=== PATIENT | male | born 1965 | race Caucasian/White ===

== ENCOUNTER 2020-07-03 12:57 | Outpatient (REF) | payer MEDICARE, MEDICAID, SELFPAY ==
--- NOTE | 2020-07-03 | US_ITS ---
EXAMINATION: US EXTRACRANIAL CAROTID DUPLEX, BILATERAL CLINICAL INFORMATION: This a 55-year-old male with occlusion or stenosis of bilateral carotid arteries. Diabetes, tobacco use, hypertension. Carotid artery disease. COMPARISON: None TECHNIQUE: Real-time ultrasound and Doppler techniques (integrating B-mode 2-D vascular images, Doppler spectral analysis and color-flow Doppler imaging) were utilized to interrogate the extracranial carotid arteries, the vertebral arteries and proximal subclavian arteries bilaterally. The degree of stenosis is determined by criteria similar to NASCET. FINDINGS: Right Side: 1. There is moderate atherosclerotic plaque seen in the bifurcation/proximal ICA region. 2. The common carotid artery PSV proximally is 89 cm/s and distally 78 cm/s. 3. The proximal internal carotid artery velocities are 65 cm/s systolic and 18 cm/s diastolic. 4. The proximal external carotid artery PSV is 138 cm/s. 5. The vertebral artery shows antegrade flow. 6. The subclavian artery waveforms are normal. Left Side: 1. There is minimal atherosclerotic plaque seen in the bifurcation/proximal ICA region. 2. The common carotid artery PSV proximally is 109 cm/s and distally 100 cm/s. 3. The proximal internal carotid artery velocities are 80 cm/s systolic and 17 cm/s diastolic. 4. The proximal external carotid artery PSV is 127 cm/s. 5. The vertebral artery shows antegrade flow. 6. The subclavian artery waveforms are normal. US/US carotid duplex BI IMPRESSION: 1. RIGHT: Minimal, non-hemodynamically significant stenosis of the proximal right internal carotid artery corresponding to a 0-49% stenosis by velocity criteria. 2. LEFT: Minimal, non-hemodynamically significant stenosis of the proximal left internal carotid artery corresponding to a 0-49% stenosis by velocity criteria. 3. Incidental note is made of a hypoechoic mass in the left neck measuring 1.7 x 0.7 x 1.5 cm. It does not have an echogenic fatty hilum that would be typical of a lymph node. No calcification is seen. The etiology is unclear. I would recommend a full diagnostic neck ultrasound for further evaluation.
--- NOTE | 2020-08-06 15:24 | MHC.SLORD ---
Please see original MBSS report in historical documentation. Patient was recommended dysphagia therapy. Patient spoke with front office staff and declines treatment at this time. Date of : 1965 Age: 55 Date of Registration: 07/03/20 Speech Language Pathology Order Status:
== END 2020-07-03 12:58 | disposition home or self-care (01) ==
LOC: HO.US 12:57
PROVIDERS: PCP Family Medicine; Visit Provider Family Medicine
DX: I65.23 Occlusion and stenosis of bilateral carotid arteries (principal)
CPT/HCPCS: 93880

== ENCOUNTER 2020-09-19 14:27 | Outpatient (RCR) | payer MEDICARE, MEDICAID, SELFPAY | END 2020-10-15 13:26 | disposition home or self-care (01) | LOC: HO.WCC 14:27 | PROVIDERS: Visit Provider Surgery | DX: E11.621 Type 2 diabetes mellitus with foot ulcer (principal); L97.412 Non-pressure chronic ulcer of right heel and midfoot with fat layer exposed; E11.51 Type 2 diabetes mellitus with diabetic peripheral angiopathy without gangrene; E11.65 Type 2 diabetes mellitus with hyperglycemia; F17.200 Nicotine dependence, unspecified, uncomplicated; F12.90 Cannabis use, unspecified, uncomplicated; Z79.4 Long term (current) use of insulin; Z71.6 Tobacco abuse counseling | CPT/HCPCS: 11042; 99203; 99212 ==

== ENCOUNTER → 2021-05-20 13:20 | Outpatient (BNVA) | payer MEDICARE, MEDICAID, SELFPAY | PROVIDERS: PCP Family Medicine; Visit Provider Surgery Vascular Surgery | DX: I73.9 Peripheral vascular disease, unspecified (principal) | CPT/HCPCS: 99202 ==

== ENCOUNTER 2021-06-09 13:49 | Outpatient (REF) | payer MEDICARE, MEDICAID, SELFPAY ==
--- NOTE | ~2021-06-09 | US_ITS ---
EXAMINATION: NONINVASIVE ASSESSMENT OF THE ARTERIES OF BOTH LOWER EXTREMITIES INCLUDING PVR EXAM AND BILATERAL LOWER EXTREMITY DUPLEX CLINICAL INFORMATION: Claudication COMPARISON: None TECHNIQUE: Ankle pulse volume recordings, ankle pressure measurements and ankle brachial indices were obtained of the lower extremity arterial system bilaterally in addition to duplex Doppler techniques with wave form analysis and measurement of velocities in the common femoral, profunda femoral, superficial femoral, popliteal, tibial and peroneal arteries. The study was performed only at rest. FINDINGS: RIGHT LEG 1. Right Ankle-Brachial Index: 0.62 (higher of the DP/PT) >0.97-1.25 = normal - no significant arterial disease 0.75-0.96 = mild peripheral arterial disease 0.5-0.74 = moderate peripheral arterial disease <0.50 = severe peripheral arterial disease <0.30 = critical arterial disease 2. Segmental Pressures (mmHg): Brachial: 135 Ankle: PT 91, DP 78 3. PVR Waveforms: Ankle: Abnormal 4. Direct Duplex: Common femoral artery: 55.5 cm/s, Multiphasic (poorly seen diastolic flow reversal) Profunda femoris artery: 76.2 cm/s, monophasic Superficial femoral artery (proximal): 26.3 cm/s, monophasic Superficial femoral artery (mid): 15.3 cm/s, monophasic Superficial femoral artery (distal): 32.8 cm/s, monophasic Popliteal artery: 64.8 cm/s, monophasic Mid posterior tibial artery: 20.8 cm/s, monophasic Peroneal artery: 13.7 cm/s, monophasic At the midportion of the right SFA there is a collateral vessel with retrograde flow with peak systolic velocity 160 cm/s. An additional collaterals seen at the level of the distal SFA with peak systolic velocity 19.8 cm/s. A collateral vessels seen adjacent to the right posterior tibial artery with peak systolic velocity 20.8 cm/s. LEFT LE. Left Ankle-Brachial Index: 0.64 (higher of the DP/PT) >0.97-1.25 = normal - no significant arterial disease 0.75-0.96 = mild peripheral arterial disease 0.5-0.74 = moderate peripheral arterial disease <0.50 = severe peripheral arterial disease <0.30 = critical arterial disease 2. Segmental Pressures: Brachial: 147 Ankle: PT 94, DP 93 3. PVR Waveforms: Ankle: Abnormal 4. Direct Duplex: Common femoral artery: 134 cm/s, monophasic Profunda femoris artery: 100 cm/s, multiphasic Superficial femoral artery (proximal): 57.8 cm/s, monophasic Superficial femoral artery (mid): 28.1 cm/s, monophasic Superficial femoral artery (distal): 259 cm/s, monophasic Popliteal artery: 37.7 cm/s, monophasic Mid posterior tibial artery: 23.6 cm/s, monophasic Peroneal artery: 18.1 cm/s, monophasic At the distal portion of the left SFA there is a collateral vessel with peak systolic velocity 97 cm/s. There are 2 collateral vessels of the popliteal artery with peak systolic velocity 79.2 cm/s and 35 cm/s. US/US arterial duplex LE BI IMPRESSION: On the right LIZANDRO and PVR are indicative of moderate peripheral arterial disease. On duplex analysis flow is monophasic throughout essentially the entirety of the visualized vasculature. There is particularly decreased velocity at the proximal to mid superficial femoral artery with collateral vessel seen distally. On the left LIZANDRO and PVR are indicative of moderate peripheral arterial disease. On duplex analysis flow is monophasic throughout the majority of the visualized vasculature. There is elevated peak systolic velocity at the level of the distal superficial femoral artery suggesting a focal stenosis at this location.
== END 2021-06-09 13:50 | disposition home or self-care (01) ==
LOC: HO.US 13:49
PROVIDERS: Visit Provider Surgery Vascular Surgery
DX: I70.213 Atherosclerosis of native arteries of extremities with intermittent claudication, bilateral legs (principal)
CPT/HCPCS: 93923; 93925

== ENCOUNTER → 2021-07-01 13:37 | Outpatient (BNVA) | payer MEDICARE, MEDICAID, SELFPAY | PROVIDERS: PCP Family Medicine; Visit Provider Surgery Vascular Surgery | DX: I73.9 Peripheral vascular disease, unspecified (principal) | CPT/HCPCS: 99212 ==